=== PATIENT | male | born 1945 | race Caucasian/White ===

== ENCOUNTER 2021-09-12 20:10 | Inpatient (IN) | payer MEDICARE ==
[2021-09-13] MEDS ORDERED: Acetaminophen 325 MG TAB PO PRN (02:15)
[2021-09-13] MEDS ORDERED: Ondansetron ODT 4 MG TAB PO PRN (02:15)
[2021-09-13] MEDS ORDERED: Acetaminophen 650 MG Suppository PR PRN (02:15)
[2021-09-13] MEDS ORDERED: Ondansetron PF 4 MG/2 ML Vial IVP PRN (02:15)
[2021-09-13] MEDS ORDERED: hydrALAZINE 20 MG/ML VIAL SLOW IVP PRN (02:34)
[2021-09-13] MEDS ORDERED: Dextrose 50% Abboject 50 ML SYRINGE SLOW IVP PRN (02:36)
[2021-09-13] MEDS ORDERED: Dextrose 5% in Water 1,000 ML IV PRN (02:36)
[2021-09-13 03:17] VITALS: BMI 27.0
[2021-09-13 05:09] LABS: #Basophils 0.1 thou/uL (0.0-0.2); #Eosinphils 0.1 thou/uL (0.0-0.7); #Lymphocytes 2.2 thou/uL (1.20-3.40); #Monocytes 0.8 thou/uL (0.11-0.59); #Neutrophils 5.3 thou/uL (1.40-6.50); %Basophils 1.1 % (0.0-1.0); %Eosinophils 1.5 % (0.0-10.0); %Lymphocytes 26.3 % (21.0-51.0); %Neutrophils 62.1 % (42.0-75.0); Hemoglobin 14.2 g/dL (14.0-18.0); Mean Corpuscular HGB CONC 31.7 g/dL (32.0-36.0); Mean Corpuscular Hemoglobin 29.4 pg (27.0-31.0); Mean Corpuscular Volume 92.8 fL (78.0-98.0); Mean Platelet Volume 9.4 fL (7.4-10.4); Platelet Count 154 thou/uL (130-400); Red Blood Cell (RBC) Count 4.81 mill/uL (4.70-6.10); White Blood Cell (WBC) Count 8.5 thou/uL (4.8-10.8)
[2021-09-13 05:34] LABS: Anion Gap 13 mmol/L (10-20); BUN (Urea Nitrogen) 20 mg/dL (8.4-25.7); Calc. Creatinine Clearance 77 mL/min (70-130); Calcium 9.1 mg/dL (7.8-10.44); Carbon Dioxide 24 mmol/L (23-31); Cardiac Risk 6.9 (Less than 4.5); Chloride 107 mmol/L (98-107); Cholesterol 194 mg/dl (< 200 Desired); Glucose 167 mg/dL (83-110); HDL Cholesterol 28 mg/dL (>60 Neg Risk); LDL Cholesterol, Calculated 143 mg/dL; Potassium 4.7 mmol/L (3.5-5.1); Sodium 139 mmol/L (136-145); Triglycerides 114 mg/dL (Less than 150)
[2021-09-13] MEDS: Diltiazem HCl 125 MG, Admixture Fee 1 EACH in Sodium Chloride 0.9% 100 ML IVPB SCH (05:47)
[2021-09-13] MEDS ORDERED: Carvedilol 3.125 MG TAB PO SCH ×2 (08:15→17:00)
[2021-09-13] MEDS ORDERED: Enoxaparin Sodium 40 MG/0.4 ML SYRINGE SC SCH (09:00)
[2021-09-13] MEDS: Aspirin 81 mg Enteric Coated Tablet PO SCH (09:43)
[2021-09-13] MEDS: Enoxaparin Sodium 100 MG/ML SYRINGE SC SCH ×2 (09:43→21:45)
[2021-09-13] MEDS: HumaLOG 300 UNITS/3 ML VIAL SC PRN ×3 (12:25→21:46)
[2021-09-13] MEDS ORDERED: Clopidogrel Bisulfate 75 MG TAB PO SCH (13:00)
[2021-09-13] MEDS: Atorvastatin Calcium 40 MG TAB PO SCH (21:45)
[2021-09-14] MEDS: Diltiazem HCl 125 MG, Admixture Fee 1 EACH in Sodium Chloride 0.9% 100 ML IVPB SCH (04:01)
[2021-09-14 05:45] LABS: Hemoglobin 14.7 g/dL (14.0-18.0); Platelet Count 157 thou/uL (130-400)
[2021-09-14] MEDS: Digoxin 0.25 MG TAB PO SCH ×4 (06:49→22:45)
[2021-09-14] MEDS: Enoxaparin Sodium 100 MG/ML SYRINGE SC SCH (10:06)
[2021-09-14] MEDS: Clopidogrel Bisulfate 75 MG TAB PO SCH (10:07)
[2021-09-14] MEDS: Aspirin 81 mg Enteric Coated Tablet PO SCH (10:08)
[2021-09-14] MEDS: Carvedilol 6.25 MG TAB PO SCH ×3 (10:08→22:46)
[2021-09-14] MEDS: HumaLOG 300 UNITS/3 ML VIAL SC PRN ×2 (12:51→18:04)
[2021-09-14] MEDS: Atorvastatin Calcium 40 MG TAB PO SCH (22:46)
[2021-09-15] MEDS: Digoxin 0.125 MG TAB PO SCH (08:23)
[2021-09-15] MEDS: Aspirin 81 mg Enteric Coated Tablet PO SCH (08:24)
[2021-09-15] MEDS: Carvedilol 6.25 MG TAB PO SCH ×2 (08:24→14:53)
[2021-09-15] MEDS: Clopidogrel Bisulfate 75 MG TAB PO SCH (08:24)
[2021-09-15] MEDS: HumaLOG 300 UNITS/3 ML VIAL SC PRN ×4 (08:31→20:47)
[2021-09-15] MEDS ORDERED: Sodium Chloride 0.9% 250 ML IV SCH (10:30)
[2021-09-15] MEDS ORDERED: Carvedilol 6.25 MG TAB PO SCH (14:45)
[2021-09-15] MEDS ORDERED: Lantus 1000 UNITS/10 ML VIAL SC SCH (15:15)
[2021-09-15 15:50] LABS: #Basophils 0.1 thou/uL (0.0-0.2); #Eosinphils 0.2 thou/uL (0.0-0.7); #Lymphocytes 2.8 thou/uL (1.20-3.40); #Monocytes 0.7 thou/uL (0.11-0.59); #Neutrophils 5.3 thou/uL (1.40-6.50); %Basophils 0.8 % (0.0-1.0); %Eosinophils 2.4 % (0.0-10.0); %Lymphocytes 30.5 % (21.0-51.0); %Neutrophils 58.2 % (42.0-75.0); Hemoglobin 16.8 g/dL (14.0-18.0); Mean Corpuscular HGB CONC 34.2 g/dL (32.0-36.0); Mean Corpuscular Hemoglobin 31.3 pg (27.0-31.0); Mean Corpuscular Volume 91.5 fL (78.0-98.0); Mean Platelet Volume 9.2 fL (7.4-10.4); Platelet Count 186 thou/uL (130-400); RBC Distribution Width 11.9 % (11.5-14.5); Red Blood Cell (RBC) Count 5.36 mill/uL (4.70-6.10); White Blood Cell (WBC) Count 9.1 thou/uL (4.8-10.8)
[2021-09-15 16:21] LABS: ALT (SGPT) 30 U/L (8-55); AST (SGOT) 37 U/L (5-34); Albumin 3.7 g/dL (3.4-4.8); Alkaline Phosphatase 56 U/L (40-110); Anion Gap 10 mmol/L (10-20); BUN (Urea Nitrogen) 24 mg/dL (8.4-25.7); Bilirubin, Total 0.9 mg/dL (0.2-1.2); Calc. Creatinine Clearance 84 mL/min (70-130); Calcium 9.2 mg/dL (7.8-10.44); Carbon Dioxide 23 mmol/L (23-31); Chloride 105 mmol/L (98-107); Globulin 2.6 g/dL (2.4-3.5); Glucose 220 mg/dL (83-110); Magnesium 2.1 mg/dL (1.6-2.6); Potassium 4.4 mmol/L (3.5-5.1); Protein, Total 6.3 g/dL (5.8-8.1); Sodium 134 mmol/L (136-145)
[2021-09-15] MEDS: Atorvastatin Calcium 40 MG TAB PO SCH (20:46)
[2021-09-16] MEDS: HumaLOG 300 UNITS/3 ML VIAL SC PRN ×2 (07:33→11:54)
[2021-09-16] MEDS: Clopidogrel Bisulfate 75 MG TAB PO SCH (08:35)
[2021-09-16] MEDS: Aspirin 81 mg Enteric Coated Tablet PO SCH (08:35)
[2021-09-16] MEDS: Digoxin 0.125 MG TAB PO SCH (08:35)
[2021-09-16] MEDS ORDERED: FLU VACC QS2021-22(65YR UP)/PF 240 MCG/0.7 ML SYRINGE IM ONE (09:00)
[2021-09-16] MEDS ORDERED: Lantus 1000 UNITS/10 ML VIAL SC SCH (11:45)
[2021-09-16 16:08] VITALS: BP 138/87; TEMP 98.1
[2021-09-17] MEDS ORDERED: Lantus 1000 UNITS/10 ML VIAL SC SCH (09:00)
== END 2021-09-16 17:35 | disposition home or self-care (01) | DRG 65 ==
LOC: 3SE 22:07 → OBSVTOIN 09-13 12:58
PROVIDERS: ADMIT Family Medicine; ATTEND Internal Medicine
DX: I63.511 Cerebral infarction due to unspecified occlusion or stenosis of right middle cerebral artery (principal); I48.92 Unspecified atrial flutter; I42.8 Other cardiomyopathies; N13.8 Other obstructive and reflux uropathy; I50.22 Chronic systolic (congestive) heart failure; I48.11 Longstanding persistent atrial fibrillation; R29.701 NIHSS score 1; E11.9 Type 2 diabetes mellitus without complications; E78.5 Hyperlipidemia, unspecified; R47.81 Slurred speech; R29.810 Facial weakness; I08.1 Rheumatic disorders of both mitral and tricuspid valves; R47.1 Dysarthria and anarthria; N40.1 Benign prostatic hyperplasia with lower urinary tract symptoms; I11.0 Hypertensive heart disease with heart failure; I95.89 Other hypotension; I49.1 Atrial premature depolarization; I25.2 Old myocardial infarction; Z79.899 Other long term (current) drug therapy; Z79.82 Long term (current) use of aspirin; Z79.4 Long term (current) use of insulin; Z95.5 Presence of coronary angioplasty implant and graft; Z98.890 Other specified postprocedural states; Z95.1 Presence of aortocoronary bypass graft
CPT/HCPCS: 36415; 36416; 70450; 70551; 80048; 80053; 80061; 83735; 85014; 85018; 85025; 85049; 93005; 93010; 93306; 96365; 96366; 96372; G0378; J1650; J1815; J3490; J7030

== ENCOUNTER 2021-11-26 10:50 | Outpatient (CLI) | payer MEDICARE ==
[2021-11-26 12:46] LABS: Hemoglobin 15.3 g/dL (13.5-17.5); Mean Corpuscular HGB CONC 33.6 g/dL (32.0-36.0); Mean Corpuscular Hemoglobin 30.1 pg (27.0-33.0); Mean Corpuscular Volume 89.8 fl (81.2-95.1); Platelet Count 154 10x3/uL (150-450); RBC Distribution Width 13.2 % (11.5-14.5); Red Blood Cell (RBC) Count 5.08 10x6/uL (4.32-5.72); White Blood Cell (WBC) Count 9.2 10x3/uL (3.5-10.5)
[2021-11-26 12:56] LABS: Anion Gap 12 mmol/L (10-20); BUN (Urea Nitrogen) 15 mg/dL (8.4-25.7); Calc. Creatinine Clearance 0 mL/min (70-130); Calcium 9.3 mg/dL (7.8-10.44); Carbon Dioxide 29 mmol/L (23-31); Chloride 100 mmol/L (98-107); Glucose 355 mg/dL (83-110); PTT 27.1 sec (22.0-33.0); Potassium 4.7 mmol/L (3.5-5.1); Prothrombin Time 11.2 sec (9.5-12.1); Sodium 136 mmol/L (136-145)
[2021-11-26 22:26] LABS: SARS-CoV-2 PCR by NAA Not Detected (NotDetected)
== END 2021-11-26 10:51 | disposition home or self-care (01) ==
LOC: LABBT 10:50
PROVIDERS: ATTEND Internal Medicine Cardiovascular Disease
DX: Z01.818 Encounter for other preprocedural examination (principal); Z20.822 Contact with and (suspected) exposure to COVID-19
CPT/HCPCS: 80048; 85027; 85610; 85730; 93005; U0003; U0005; 93010

== ENCOUNTER 2021-11-28 09:44 | Day surgery (SDC) | payer MEDICARE ==
[2021-11-21 13:28] VITALS: BMI 27.1
[2021-11-28] MEDS ORDERED: Heparin 10,000 UNITS/ 10 ML VIAL ONE (11:47)
[2021-11-28] MEDS ORDERED: Heparin 25,000 units/D5W 500 ML ONE (11:47)
[2021-11-28] MEDS ORDERED: Protamine Sulfate 50 MG/5 ML VIAL ONE (11:47)
[2021-11-28] MEDS ORDERED: Isoproterenol 0.2 MG/1 ML AMP ONE (12:27)
[2021-11-28] MEDS ORDERED: Fentanyl 100 MCG/2 ML VIAL ONE ×2 (12:31→12:35)
[2021-11-28] MEDS ORDERED: Rocuronium Bromide 10 MG/ML (10ML VIAL) ONE (12:48)
[2021-11-28] MEDS ORDERED: Ondansetron PF 4 MG/2 ML Vial ONE ×2 (12:48→14:28)
[2021-11-28] MEDS ORDERED: PROPOFOL 200 MG/20 ML VIAL ONE (12:48)
[2021-11-28] MEDS ORDERED: Lidocaine 1% PF 5 ML VIAL ONE (12:48)
[2021-11-28] MEDS ORDERED: Glycopyrrolate 0.2 MG/ML 5 ML SYRINGE ONE (12:48)
[2021-11-28] MEDS ORDERED: Phenylephrine 10 MG/ML VIAL ONE ×2 (12:48→13:04)
[2021-11-28] MEDS ORDERED: SUGAMMADEX SODIUM 200 MG/2 ML VIAL ONE (14:28)
== END 2021-11-28 19:00 | disposition home or self-care (01) ==
LOC: CCL 09:44
PROVIDERS: ATTEND Internal Medicine Cardiovascular Disease
PROC: 02583ZZ Destruction of Conduction Mechanism, Percutaneous Approach (ICD-10-PCS; principal; 2021-11-28)
PROC: 02K83ZZ Map Conduction Mechanism, Percutaneous Approach (ICD-10-PCS; 2021-11-28)
PROC: 4A023FZ Measurement of Cardiac Rhythm, Percutaneous Approach (ICD-10-PCS; 2021-11-28)
PROC: 4A0234Z Measurement of Cardiac Electrical Activity, Percutaneous Approach (ICD-10-PCS; 2021-11-28)
DX: I48.91 Unspecified atrial fibrillation (principal); I48.92 Unspecified atrial flutter; M19.90 Unspecified osteoarthritis, unspecified site; E11.9 Type 2 diabetes mellitus without complications; I11.9 Hypertensive heart disease without heart failure; I25.10 Atherosclerotic heart disease of native coronary artery without angina pectoris; I25.2 Old myocardial infarction; I34.0 Nonrheumatic mitral (valve) insufficiency; E78.5 Hyperlipidemia, unspecified; Z86.73 Personal history of transient ischemic attack (TIA), and cerebral infarction without residual deficits; Z79.01 Long term (current) use of anticoagulants; Z79.02 Long term (current) use of antithrombotics/antiplatelets; Z79.4 Long term (current) use of insulin; Z79.82 Long term (current) use of aspirin; Z79.899 Other long term (current) drug therapy; Z95.1 Presence of aortocoronary bypass graft; Z95.5 Presence of coronary angioplasty implant and graft
CPT/HCPCS: 36416; 85347; 93005; 93010; 93613; 93623; 93656; 93662; C1732; C1759; C1884; J1644; J2370; J2405; J2704; J2720; J3010

== ENCOUNTER 2022-04-10 09:58 | Outpatient (CLI) | payer MEDICARE | END 2022-04-10 09:59 | disposition home or self-care (01) | LOC: LABBT 09:58 | PROVIDERS: ATTEND Internal Medicine Cardiovascular Disease | DX: Z01.818 Encounter for other preprocedural examination (principal); I48.19 Other persistent atrial fibrillation; I63.9 Cerebral infarction, unspecified; Z98.890 Other specified postprocedural states | CPT/HCPCS: 80053; 81003; 85027; 85610; 85730; 86850; 86900; 86901; 86920; 93005; U0003; U0005; 93010 ==

== ENCOUNTER 2022-04-10 11:45 | Inpatient (IN) | payer MEDICARE ==
[2022-04-10 11:51] LABS: Bilirubin Neg (Negative); Blood, Urine Negative (Negative); Clarity Clear (Clear); Glucose, Urine (Dipstick) >=1000 mg/dL (Negative); Ketone, Urine Negative (Negative); Leukocyte Negative (Negative); Nitrite Negative (Negative); Protein, Urine (Dipstick) Negative (Neg-Trace); Urobilinogen Normal mg/dL (Less than 2); pH, Urine 6.5 (5.0-9.0)
[2022-04-10 11:53] LABS: Hemoglobin 15.5 g/dL (13.5-17.5); Mean Corpuscular HGB CONC 33.1 g/dL (32.0-36.0); Mean Corpuscular Hemoglobin 30.1 pg (27.0-33.0); Mean Corpuscular Volume 90.9 fl (81.2-95.1); Mean Platelet Volume 11.9 fl (7.4-10.4); Platelet Count 162 10x3/uL (150-450); RBC Distribution Width 12.5 % (11.5-14.5); Red Blood Cell (RBC) Count 5.15 10x6/uL (4.32-5.72); White Blood Cell (WBC) Count 10.8 10x3/uL (3.5-10.5)
[2022-04-10 12:10] LABS: Prothrombin Time 10.7 sec (9.5-12.1)
[2022-04-10 12:15] LABS: ALT (SGPT) 17 U/L (8-55); AST (SGOT) 16 U/L (5-34); Albumin 4.4 g/dL (3.4-4.8); Alkaline Phosphatase 65 U/L (40-110); Anion Gap 15 mmol/L (10-20); BUN (Urea Nitrogen) 16 mg/dL (8.4-25.7); Bilirubin, Total 1.4 mg/dL (0.2-1.2); Calc. Creatinine Clearance 0 mL/min (70-130); Calcium 9.3 mg/dL (7.8-10.44); Carbon Dioxide 27 mmol/L (23-31); Chloride 103 mmol/L (98-107); Globulin 2.7 g/dL (2.4-3.5); Glucose 217 mg/dL (83-110); Potassium 4.3 mmol/L (3.5-5.1); Protein, Total 7.1 g/dL (5.8-8.1); Sodium 141 mmol/L (136-145)
[2022-04-10 12:16] VITALS: BMI 25.7
[2022-04-10 22:06] LABS: SARS-CoV-2 PCR by NAA Not Detected (NotDetected)
[2022-04-15] MEDS ORDERED: Iopamidol 370 76% 100 ML VIAL ONE (08:45)
[2022-04-15] MEDS ORDERED: CEFAZOLIN 1 GM VIAL ONE (08:46)
[2022-04-15] MEDS ORDERED: Protamine Sulfate 50 MG/5 ML VIAL ONE (08:46)
[2022-04-15] MEDS ORDERED: Heparin 10,000 UNITS/ 10 ML VIAL ONE (08:46)
[2022-04-15] MEDS ORDERED: fentaNYL Citrate/PF 100 MCG/2 ML SYRINGE ONE (09:43)
[2022-04-15] MEDS ORDERED: PHENYLEPHRINE-NS 100 MCG/ML 10 ML SYRINGE ONE (09:52)
[2022-04-15] MEDS ORDERED: Glycopyrrolate 0.2 MG/ML 5 ML SYRINGE ONE (09:52)
[2022-04-15] MEDS ORDERED: Ondansetron PF 4 MG/2 ML Vial ONE (09:52)
[2022-04-15] MEDS ORDERED: Ketorolac Tromethamine 30 MG/ML VIAL ONE (09:52)
[2022-04-15] MEDS ORDERED: PROPOFOL 200 MG/20 ML VIAL ONE (09:52)
[2022-04-15] MEDS ORDERED: Rocuronium Bromide 10 MG/ML (10ML VIAL) ONE (09:52)
== END 2022-04-15 16:44 | disposition home or self-care (01) | DRG 274 ==
LOC: SURG A 04-15 06:51
PROVIDERS: ADMIT Internal Medicine Cardiovascular Disease; ATTEND Internal Medicine Cardiovascular Disease
PROC: 02L73DK Occlusion of Left Atrial Appendage with Intraluminal Device, Percutaneous Approach (ICD-10-PCS; principal; 2022-04-15)
PROC: B24BZZ4 Ultrasonography of Heart with Aorta, Transesophageal (ICD-10-PCS; 2022-04-15)
DX: I48.19 Other persistent atrial fibrillation (principal); I31.3 Pericardial effusion (noninflammatory); Z00.6 Encounter for examination for normal comparison and control in clinical research program; Z20.822 Contact with and (suspected) exposure to COVID-19; E11.9 Type 2 diabetes mellitus without complications; I10 Essential (primary) hypertension; I25.10 Atherosclerotic heart disease of native coronary artery without angina pectoris; E78.5 Hyperlipidemia, unspecified; I34.0 Nonrheumatic mitral (valve) insufficiency; I25.2 Old myocardial infarction; Z98.890 Other specified postprocedural states; Z86.73 Personal history of transient ischemic attack (TIA), and cerebral infarction without residual deficits; Z95.1 Presence of aortocoronary bypass graft; Z79.899 Other long term (current) drug therapy; Z79.01 Long term (current) use of anticoagulants; Z79.82 Long term (current) use of aspirin; Z79.4 Long term (current) use of insulin
CPT/HCPCS: 33340; 36430; 80053; 81003; 85027; 85347; 85610; 85730; 86850; 86900; 86901; 93306; 93312; C1759; J0690; J1644; J1885; J2405; J2704; J2720; Q9967; U0003; U0005

== ENCOUNTER 2022-05-20 07:17 | Outpatient (CLI) | payer MEDICARE ==
[2022-05-20 08:38] LABS: Hemoglobin 15.7 g/dL (13.5-17.5); Mean Corpuscular HGB CONC 33.3 g/dL (32.0-36.0); Mean Corpuscular Hemoglobin 30.6 pg (27.0-33.0); Mean Platelet Volume 11.4 fl (7.4-10.4); Platelet Count 149 10x3/uL (150-450); Red Blood Cell (RBC) Count 5.13 10x6/uL (4.32-5.72); White Blood Cell (WBC) Count 8.7 10x3/uL (3.5-10.5)
[2022-05-20 08:59] LABS: PTT 27.7 sec (22.0-33.0); Prothrombin Time 10.6 sec (9.5-12.1)
[2022-05-20 09:02] LABS: Anion Gap 15 mmol/L (10-20); BUN (Urea Nitrogen) 19 mg/dL (8.4-25.7); Calc. Creatinine Clearance 0 mL/min (70-130); Calcium 9.1 mg/dL (7.8-10.44); Carbon Dioxide 27 mmol/L (23-31); Chloride 105 mmol/L (98-107); Glucose 159 mg/dL (83-110); Sodium 143 mmol/L (136-145)
== END 2022-05-20 07:18 | disposition home or self-care (01) ==
LOC: LABBT 07:17
PROVIDERS: ATTEND Internal Medicine Cardiovascular Disease
DX: Z01.812 Encounter for preprocedural laboratory examination (principal); Z20.822 Contact with and (suspected) exposure to COVID-19
CPT/HCPCS: 80048; 85027; 85610; 85730; U0003; U0005

== ENCOUNTER 2022-05-24 06:00 | Day surgery (SDC) | payer MEDICARE ==
[2022-05-22 11:35] VITALS: BMI 25.7
[2022-05-24] MEDS ORDERED: PROPOFOL 200 MG/20 ML VIAL ONE (08:37)
== END 2022-05-24 09:53 | disposition home or self-care (01) ==
LOC: SDC 06:00
PROVIDERS: ATTEND Internal Medicine Cardiovascular Disease
PROC: B24BZZ4 Ultrasonography of Heart with Aorta, Transesophageal (ICD-10-PCS; principal; 2022-05-24)
DX: I48.19 Other persistent atrial fibrillation (principal); I10 Essential (primary) hypertension; E11.9 Type 2 diabetes mellitus without complications; Z79.01 Long term (current) use of anticoagulants; Z79.82 Long term (current) use of aspirin; Z79.4 Long term (current) use of insulin; Z79.899 Other long term (current) drug therapy; Z86.73 Personal history of transient ischemic attack (TIA), and cerebral infarction without residual deficits
CPT/HCPCS: 93312; J2704